=== PATIENT | male | born 1995 | race American Indian/Alaskan Native ===

== ENCOUNTER 2019-06-21 14:12 | Emergency (ER) | payer SELFPAY ==
[2019-06-21 15:28] VITALS: BP 141/83
--- NOTE | 2019-06-21 15:31 | Event Note ---
ED Screening Note Date of service: 06/21/19 Time: 15:26 ED Screening Note: 23 y/o male comes in for left ankle trauma after someone stepped on the back of his Achilles. Pain 01/11. This initial assessment/diagnostic orders/clinical plan/treatment(s) is/are subject to change based on patients health status, clinical progression and re- assessment by fellow clinical providers in the ED. Further treatment and workup at subsequent clinical providers discretion. Patient/guardian urged not to elope from the ED as their condition may be serious if not clinically assessed and managed. Initial orders include:
--- NOTE | 2019-06-21 16:19 | XRay Report ---
HISTORY:ankles pain s/p trauma COMPARISON: None. TECHNIQUE: AP lateral and oblique FINDINGS: Bones: No fracture or dislocation. Joint spaces: Maintained. Soft tissues: No significant abnormality. Additional findings: None. IMPRESSION: 1. No significant abnormality. Signer Name: Killian De La Vega MD Signed: 06/21/2019 4:15 PM Workstation Name: [id number]
[2019-06-21] MEDS ORDERED: IBUPROFEN PO ONE (16:35)
--- NOTE | 2019-06-21 16:35 | Emergency Department Report ---
ED Lower Extremity HPI - General Chief Complaint: Extremity Injury, Lower Stated Complaint: (L) ACHILLES PAIN Time Seen by Provider: 06/21/19 15:26 Source: patient Mode of arrival: Wheelchair Limitations: No Limitations - History of Present Illness Initial Comments: Mr. White is a very pleasant healthy 23 yo male who injured his lower left leg during a basketball camp. Another player stepped onto the posterior portion of his left ankle lower leg. He was only able to limp with crutches.mild pain 3/10 in severity. No radiation of pain. Pain located lower posterior left leg in Achilles tendon. MD Complaint: leg injury, ankle injury -: Sudden, This afternoon Injury: Ankle: Left Type of Injury: blunt Place: other (basketball camp) Severity: mild Severity scale (0 -10): 3 Worsens With: weight bearing Context: direct blow Treatments Prior to Arrival: other (crutches) - Related Data Allergies Allergy/AdvReac Type Severity Reaction Status Date / Time No Known Allergies Allergy Unverified 06/21/19 14:16 ED Review of Systems ROS: Stated complaint: (L) ACHILLES PAIN Other details as noted in HPI Constitutional: denies: fever, malaise Musculoskeletal: myalgia Skin: denies: change in color, change in hair/nails Neurological: denies: numbness, paresthesias ED Past Medical Hx - Past Medical History Previous Medical History?: No - Surgical History Past Surgical History?: No - Social History Smoking Status: Never Smoker Substance Use Type: None ED Physical Exam - General Limitations: No Limitations General appearance: alert, in no apparent distress - Head Head exam: Present: atraumatic, normocephalic - Eye Eye exam: Absent: scleral icterus, conjunctival injection - ENT ENT exam: Present: mucous membranes moist - Neck Neck exam: Absent: normal inspection, full ROM - Extremities Exam Extremities exam: Present: other (left lower leg: deformity, fluctuance, defect palpated at Achilles tendon) - Expanded Lower Extremity Exam Left Lower Leg exam: Present: tenderness, swelling, deformity Ankle exam: Present: tenderness, deformity Foot/Toe exam: Present: normal inspection, full ROM. Absent: tenderness, swelling Neuro vascular tendon exam: Present: no vascular compromise Gait: Positive: not tested/not observed ED Course Vital Signs 06/21/19 15:26 Temperature 98.3 F Pulse Rate 100 H Respiratory 18 Rate Blood Pressure 141/83 O2 Sat by Pulse 100 Oximetry ED Lower Extremity MDM - Radiology Data Radiology results: report reviewed left ankle NAP according to radiology report - Medical Decision Making achilles tendon rupture: Recommended ibuprofen and elevation. He will see an orthopedic surgeon once he returns home to [place]. Left posterior splintwas applied to the affected extremity under my supervision. After application the extremity was neurovascularly intact with acceptable alignment. Critical care attestation.: If time is entered above; I have spent that time in minutes in the direct care of this critically ill patient, excluding procedure time. ED Disposition Clinical Impression: Rupture of left Achilles tendon Disposition: [id number] TO HOME OR SELFCARE Is pt being admited?: No Does the pt Need Aspirin: No Condition: Stable Additional Instructions: Please use ibuprofen to decrease inflammation and pain. Elevate and ice the area as often as possible. Please consult an orthopedic surgeon this week. Referrals: KITA WHITE MD [Staff Physician] - 2-3 Days
== END 2019-06-21 17:27 | disposition home or self-care (01) ==
LOC: ED 14:12
DX: M76.62 Achilles tendinitis, left leg (principal)